=== PATIENT | female | born 1955 | race Caucasian/White ===

== ENCOUNTER 2016-03-28 08:20 | Emergency (ER) | payer BC ==
[~2016-03-28] VITALS: Ht 172.7 cm; Wt 62.7 kg
[2016-03-28 08:42] LABS: BASOPHILS % (AUTO) 0.3 % (0.0-2.0); EOSINOPHILS % (AUTO) 3.9 % (1.0-6.0); HEMATOCRIT 42.1 % (36-46); HEMOGLOBIN 13.4 g/dL (12.0-16.0); LYMPHOCYTES # (AUTO) 1.2 K/uL (1.0-4.8); LYMPHOCYTES % (AUTO) 14.2 % (22.0-44.0); MEAN CORPUSCULAR HEMOGLOBIN 26.9 pg (26.0-34.0); MEAN CORPUSCULAR HGB CONC 31.8 G/dL (31.0-37.0); MEAN CORPUSCULAR VOLUME 85 fL (80-100); MONOCYTES # (AUTO) 0.6 K/uL (0.1-1.0); MONOCYTES % (AUTO) 6.6 % (2.0-9.0); NEUTROPHILS # (AUTO) 6.5 K/uL (1.8-7.7); PLATELET COUNT (AUTO) 310 K/uL (150-450); RED BLOOD CELL COUNT(AUTO) 4.97 MIL/uL (4.00-5.20); RED CELL DISTRIBUTION WIDTH 13.9 % (11.5-14.5); WHITE BLOOD COUNT (AUTO) 8.7 K/uL (4.5-11.0)
[2016-03-28] MEDS ORDERED: SUPE1POW MC (08:47)
[2016-03-28] MEDS ORDERED: GLUC1CAP9 PO (08:47)
[2016-03-28] MEDS ORDERED: OTHER PO (08:47)
[2016-03-28 08:51] LABS: ANION GAP 12 mmol/L (8-16); CARBON DIOXIDE 27 mmol/L (22-29); CHLORIDE 102 mmol/L (98-107); CREATININE 0.62 mg/dL (0.60-1.30); GLOMERULAR FILTR. RATE CALC > 60 mL/min (>60); POTASSIUM 4.7 mmol/L (3.5-5.1); SODIUM SERUM 141 mmol/L (136-145); UREA NITROGEN, BLOOD 16 mg/dL (7-18)
[2016-03-28] MEDS ORDERED: [UNRECOGNIZED DRUG - OTHER] PO (08:51)
[2016-03-28] MEDS ORDERED: LITHIUM OROTATE PO (08:51)
[2016-03-28] MEDS ORDERED: SELE200T27 PO (08:51)
[2016-03-28] MEDS ORDERED: [UNRECOGNIZED DRUG - OTHER] PO (08:51)
[2016-03-28 08:56] LABS: INR 1.1 (0.9-1.1); PROTHROMBIN TIME 11.2 SEC (9.4-11.6)
[2016-03-28 09:10] VITALS: BP 112/78
[2016-03-28] MEDS ORDERED: FentaNYL CITRATE-PF 100 MCG/2 ML VIAL ONE ×2 (09:25→11:30)
[2016-03-28] MEDS ORDERED: MIDAZOLAM HCL 2 MG/2 ML VIAL ONE (09:25)
[2016-03-28] MEDS ORDERED: LIDOCAINE HCL/PF 1% 30 ML VIAL ONE ×2 (09:26→12:37)
[2016-03-28] MEDS ORDERED: CeFAZolin 1 GM/DEXTROSE 50 ML IV ONE (10:45)
[2016-03-28] MEDS ORDERED: MIDAZOLAM HCL 2 MG/2 ML VIAL IVP ONE (11:28)
[2016-03-28] MEDS ORDERED: HYDROmorphone 2 MG/ML SYRINGE IVP ONE ×3 (11:45→12:30)
[2016-03-28] MEDS ORDERED: DiphenhydrAMINE HCL 50 MG/ML VIAL ONE (12:05)
[2016-03-28] MEDS ORDERED: FentaNYL CITRATE-PF 100 MCG/2 ML VIAL IVP ONE (12:12)
[2016-03-28] MEDS ORDERED: DiphenhydrAMINE HCL 50 MG/ML VIAL IVP ONE (12:15)
[2016-03-28] MEDS ORDERED: HYDROmorphone HCL 2 MG TABLET PO ONE (13:15)
[2016-03-28] MEDS ORDERED: PROMETHAZINE HCL 25 MG TABLET PO ONE (14:15)
== END 2016-03-28 14:35 | disposition home or self-care (01) ==
LOC: EMS 08:22
DX: N93.8 Other specified abnormal uterine and vaginal bleeding (principal); D25.9 Leiomyoma of uterus, unspecified
CPT/HCPCS: 36415; 75774; 80048; 85025; 85610; 85730; 96365; 96375; 96376; 99285; C1760; C1769; C1874; C1887 ×2; C1892 ×2; J0690; J1170; J1200; J2250; J3010; J3490